=== PATIENT | male | born 1945 | race Caucasian/White ===

== ENCOUNTER 2023-10-23 13:35 | Emergency (ER) | payer MEDICARE, BC, OTHER ==
[2023-10-23 16:10] VITALS: BP 138/80; PULSE 73
== END 2023-10-23 16:10 | disposition home or self-care (01) ==
LOC: MW.ED 13:35
DX: S09.90XA Unspecified injury of head, initial encounter (principal); Z88.8 Allergy status to other drugs, medicaments and biological substances; Z79.899 Other long term (current) drug therapy; W00.9XXA Unspecified fall due to ice and snow, initial encounter
CPT/HCPCS: 70450; 70450-26; 72125; 72125-26; 73562-26-RT; 73562-RT; 99283; 99284